=== PATIENT | male | born 1965 | race Caucasian/White ===

== ENCOUNTER 2018-11-24 13:39 | Emergency (ER) | payer BC ==
[2018-11-24 13:55] VITALS: BP 130/87
[2018-11-24] MEDS ORDERED: Sodium Chloride 0.9% 10 ML Syringe FLUSH PRN (14:15)
[2018-11-24] MEDS ORDERED: Albuterol/Ipratropium 3.0-0.5 MG/3 ML Neb Soln NEB ONE (14:18)
--- NOTE | 2018-11-24 15:56 | EDM.PDOC ---
ED HPI GENERAL MEDICAL PROBLEM - General Chief Complaint: Chest Pain Stated Complaint: CHEST PAIN Time Seen by Provider: 11/24/18 13:54 Source of Information: Reports: Patient History Limitations: Reports: No Limitations - History of Present Illness INITIAL COMMENTS - FREE TEXT/NARRATIVE: The patient presents with chest pain and shortness of breath. He says this will get worse when he lays flat. This has been going on for a few days. Before that he had post nasal drip, cough, congestion and runny nose. He has some allergies so he was trying his allergy meds but that is not helping. He has no history of heart problems. He has no history of DVT or PE and he has no pain in his legs or swelling. He did fly in from [place] recently. He does not smoke and he has no history of asthma or COPD. Onset: Gradual Duration: Day(s): Location: Reports: Chest Quality: Reports: Other (Tightness) Severity: Moderate Improves with: Reports: None Worsens with: Reports: None Associated Symptoms: Reports: Chest Pain, Cough, Shortness of Breath. Denies: Fever/Chills, Headaches, Nausea/Vomiting Chest Pain Score (Numeric/FACES): 2 - Related Data Allergies Allergy/AdvReac Type Severity Reaction Status Date / Time animal dander Allergy Airway Verified 11/24/18 13:55 Tightness wheat Allergy Airway Verified 11/24/18 13:55 Tightness hay Allergy Airway Uncoded 11/24/18 13:55 Tightness Home Meds: Home Meds Hydrocodone/Acetaminophen [Hydrocodon-Acetaminophen 5-325] 1 each PO Q6HR PRN # 15 tablet 08/27/16 [Rx] Albuterol [Proventil HFA] 2 puff INH Q4H PRN #1 inhaler 11/24/18 [Rx] Azithromycin [Zithromax] 250 mg PO DAILY #6 tab 11/24/18 [Rx] Past Medical History - Past Surgical History HEENT Surgical History: Reports: Naso-Sinus Surgery Musculoskeletal Surgical History: Reports: Shoulder Surgery Social & Family History - Tobacco Use Smoking Status *Q: Never Smoker - Caffeine Use Caffeine Use: Reports: Coffee - Recreational Drug Use Recreational Drug Use: No ED ROS GENERAL - Review of Systems Review Of Systems: See Below Constitutional: Reports: No Symptoms HEENT: Reports: Other (Congestion and runny nose) Respiratory: Reports: Shortness of Breath, Cough Cardiovascular: Reports: Chest Pain (tightness) Endocrine: Reports: No Symptoms GI/Abdominal: Reports: No Symptoms Musculoskeletal: Reports: No Symptoms ED EXAM, GENERAL - Physical Exam Exam: See Below Exam Limited By: No Limitations General Appearance: Alert, No Apparent Distress Ears: Normal External Exam Nose: Normal Inspection Head: Atraumatic, Normocephalic Neck: Normal Inspection, Supple, Non-Tender Respiratory/Chest: No Respiratory Distress, Decreased Breath Sounds, Wheezing ( very slight) Cardiovascular: Regular Rate, Rhythm, No Edema, No Murmur GI/Abdominal: Soft, Non-Tender, No Organomegaly, No Mass Back Exam: Normal Inspection Extremities: Normal Inspection Neurological: Alert, Oriented, No Motor/Sensory Deficits EKG INTERPRETATION EKG Date: 11/24/18 Time: 13:49 Rhythm: NSR Rate (Beats/Min): 89 [place]: Normal P-Wave: Present QRS: Normal ST-T: Normal QT: Normal Course - Vital Signs Last Recorded V/S: Last Vital Signs Temp 97.2 F 11/24/18 13:50 Pulse 90 11/24/18 13:50 Resp 18 11/24/18 13:50 BP 130/87 11/24/18 13:50 Pulse Ox 97 11/24/18 14:27 - Orders/Labs/Meds Orders: Active Orders 24 hr Category Date Time Status Cardiac Monitoring [RC] . DIRECTED Care 11/24/18 14:16 Active EKG Documentation Completion [RC] STAT Care 11/24/18 14:17 Active Peripheral IV Care [RC] . DIRECTED Care 11/24/18 14:17 Active RT Aerosol Therapy [RC] ASDIRECTED Care 11/24/18 14:18 Active Chest 2V [CR] Stat Exams 11/24/18 14:18 Taken Peripheral IV Insertion Adult [OM.PC] Stat Oth 11/24/18 14:15 Ordered Labs: Laboratory Tests 11/24/18 11/24/18 11/24/18 Range/Units 14:10 14:10 14:10 WBC 10.68 H (4.23-9.07) K/mm3 RBC 4.79 (4.63-6.08) M/mm3 Hgb 15.3 (13.7-17.5) gm/L Hct 44.9 (40.1-51.0) % MCV 93.7 H (79.0-92.2) fl MCH 31.9 (25.7-32.2) pg MCHC 34.1 (32.2-35.5) g/dl RDW Std Deviation 42.6 (35.1-43.9) fL Plt Count 175 (163-337) K/mm3 MPV 9.6 (9.4-12.3) fl Neut % (Auto) 80.2 H (34.0-67.9) % Lymph % (Auto) 12.2 L (21.8-53.1) % [place] % (Auto) 6.0 (5.3-12.2) % Eos % (Auto) 1.3 (0.8-7.0) Baso % (Auto) 0.2 (0.1-1.2) % Neut # (Auto) 8.57 H (1.78-5.38) K/mm3 Lymph # (Auto) 1.30 L (1.32-3.57) K/mm3 [place] # (Auto) 0.64 (0.30-0.82) K/mm3 Eos # (Auto) 0.14 (0.04-0.54) K/mm3 Baso # (Auto) 0.02 (0.01-0.08) K/mm3 D-Dimer, Quantitative 0.43 (0.19-0.50) mg/L Sodium 139 (136-145) mEq/L Potassium 3.8 (3.5-5.1) mEq/L Chloride 105 (98-107) mEq/L Carbon Dioxide 24 (21-32) mEq/L Anion Gap 13.8 (5-15) BUN 15 (7-18) mg/dL Creatinine 1.0 (0.7-1.3) mg/dL Est Cr Clr Drug Dosing 77.98 mL/min Estimated GFR (MDRD) > 60 (>60) mL/min BUN/Creatinine Ratio 15.0 (14-18) Glucose 107 H (74-106) mg/dL Calcium 9.4 (8.5-10.1) mg/dL Total Bilirubin 0.5 (0.2-1.0) mg/dL AST 30 (15-37) U/L ALT 64 H (16-63) U/L Alkaline Phosphatase 84 (46-116) U/L Troponin I < 0.017 (0.00-0.056) ng/mL Total Protein 7.8 (6.4-8.2) g/dl Albumin 3.9 (3.4-5.0) g/dl Globulin 3.9 gm/dL Albumin/Globulin Ratio 1.0 (1-2) Meds: Medications Discontinued Medications Generic Name Dose Route Start Last Admin Trade Name Freq PRN Reason Stop Dose Admin Albuterol/Ipratropium 3 ml 11/24/18 14:18 11/24/18 14:27 Duoneb 3.0-0.5 Mg/3 Ml NEB 11/24/18 14:19 3 ml ONETIME ONE Administration Sodium Chloride 10 ml 11/24/18 14:15 11/24/18 14:37 Saline Flush FLUSH 10 ml ASDIRECTED PRN Administration Keep Vein Open - Re-Assessments/Exams Free Text/Narrative Re-Assessment/Exam: 11/24/18 17:05 I ordered an IV saline lock, EKG, CXR, labs and duoneb. His EKG shows a NSR with no acute changes. His CXR shows no infiltrate. 11/24/18 17:06 His WBC is slightly elevated at 10.68. His CMP looks good. His troponin is negative. He feels better after the breathing treatment. I feel he has sinusitis and bronchitis. I will get him on some zithromax and albuterol. Departure - Departure Time of Disposition: 16:00 Disposition: Home, Self-Care 01 Condition: Good Clinical Impression: Atypical chest pain, Bronchitis Sinusitis Qualifiers: Sinusitis location: unspecified location Chronicity: acute Recurrence: non- recurrent Qualified Code(s): J01.90 - Acute sinusitis, unspecified Prescriptions: Albuterol [Proventil HFA] 2 puff INH Q4H PRN #1 inhaler PRN Reason: Shortness Of Breath Azithromycin [Zithromax] 250 mg PO DAILY #6 tab Instructions: Sinusitis, Adult, [id number], Acute Bronchitis, Adult, Easy-to- Read Referrals: Kalyan Prabhakar MD [Primary Care Provider] - 1 Week Forms: ED Department Discharge Additional Instructions: Take the zithromax 2 pills on day 1 and 1 pill on day 2 through 5. Use the inhaler 2 puffs every 6 hours as needed for shortness of breath or tightness in your chest. Drink plenty of fluids. Please return if you are worse. - My Orders Last 24 Hours: My Active Orders 11/24/18 14:15 Peripheral IV Insertion Adult [OM.PC] Stat 11/24/18 14:16 Cardiac Monitoring [RC] . DIRECTED 11/24/18 14:17 EKG Documentation Completion [RC] STAT Peripheral IV Care [RC] . DIRECTED 11/24/18 14:18 RT Aerosol Therapy [RC] ASDIRECTED Chest 2V [CR] Stat - Assessment/Plan Last 24 Hours: My Active Orders 11/24/18 14:15 Peripheral IV Insertion Adult [OM.PC] Stat 11/24/18 14:16 Cardiac Monitoring [RC] . DIRECTED 11/24/18 14:17 EKG Documentation Completion [RC] STAT Peripheral IV Care [RC] . DIRECTED 11/24/18 14:18 RT Aerosol Therapy [RC] ASDIRECTED Chest 2V [CR] Stat
--- NOTE | 2018-11-24 20:17 | CR ---
Chest: Two views of the chest were obtained. Comparison: No prior chest x-ray. Heart size and mediastinum are normal. Lungs are clear. Bony structures are unremarkable. Impression: 1. Nothing acute is seen on two-view chest x-ray. Diagnostic code #1
== END 2018-11-24 16:08 | disposition home or self-care (01) ==
LOC: JD.ED 13:39
DX: R07.89 Other chest pain (principal); J40 Bronchitis, not specified as acute or chronic; J01.90 Acute sinusitis, unspecified; Z91.018 Allergy to other foods
CPT/HCPCS: 36415; 71046; 71046-26; 80053; 84484; 85025; 85379; 93005; 93010; 94640; 99284; 99285-25; J7620-GY

== ENCOUNTER 2021-02-07 19:11 | Emergency (ER) | payer BC ==
[2021-02-07 19:28] VITALS: BP 146/84; PULSE 109
[2021-02-07] MEDS ORDERED: Acetaminophen 325 MG Tab PO STA (20:01)
[2021-02-07] MEDS ORDERED: Sodium Chloride 0.9% 1,000 ML IV ONE (20:01)
[2021-02-07] MEDS ORDERED: Ketorolac 30 MG/ML SDV IVPUSH ONE (20:01)
[2021-02-07] MEDS ORDERED: Sodium Chloride 0.9% 10 ML Syringe FLUSH PRN (20:01)
--- NOTE | 2021-02-07 23:58 | EDM.PDOC ---
ED HPI GENERAL MEDICAL PROBLEM - General Chief Complaint: Fever Stated Complaint: FEVER,FEET PAIN Time Seen by Provider: 02/07/21 19:24 Source of Information: Reports: Patient, Family History Limitations: Reports: No Limitations - History of Present Illness INITIAL COMMENTS - FREE TEXT/NARRATIVE: Patient is a 55-year-old male who comes in after having fever and shaking chills which started last night but are worse today. Patient had similar symptoms approximately 1 week ago at which time he was having some dysuria which resolved by the next day and is also complaining of some dysuria tonight. He is not complaining any cough or shortness of breath. He is complaining that he feels achy all over. He denies any vomiting or diarrhea. He denies any chest pain or abdominal pain. He has not had any bloody or tarry stools. He denies any swelling to his ankles or trouble breathing when he lays flat. Duration: Day(s): (2 days), Getting Worse Location: Reports: Abdomen Quality: Reports: Burning Severity: Mild Improves with: Reports: None Worsens with: Reports: Other (Urination) Associated Symptoms: Reports: Fever/Chills. Denies: Chest Pain, Cough, Diaphoresis, Malaise, Nausea/Vomiting, Rash, Shortness of Breath Treatments [employer]: Reports: Acetaminophen Generalized Pain Score (Numeric/FACES): 10 - Related Data Allergies Allergy/AdvReac Type Severity Reaction Status Date / Time animal dander Allergy Airway Verified 02/07/21 19:28 Tightness wheat Allergy Airway Verified 02/07/21 19:28 Tightness hay Allergy Airway Uncoded 02/07/21 19:28 Tightness Home Meds: Home Meds Hydrocodone/Acetaminophen [Hydrocodon-Acetaminophen 5-325] 1 each PO Q6HR PRN #15 tablet 08/27/16 [Rx] Albuterol [Proventil HFA] 2 puff INH Q4H PRN #1 inhaler 11/24/18 [Rx] Azithromycin [Zithromax] 250 mg PO DAILY #6 tab 11/24/18 [Rx] levoFLOXacin [Levaquin] 500 mg PO DAILY #5 tab 02/08/21 [Rx] Past Medical History Gastrointestinal History: Reports: Irritable Bowel Syndrome - Past Surgical History HEENT Surgical History: Reports: Naso-Sinus Surgery Musculoskeletal Surgical History: Reports: Shoulder Surgery Social & Family History - Tobacco Use Tobacco Use Status *Q: Never Tobacco User Second Hand Smoke Exposure: No - Caffeine Use Caffeine Use: Reports: Coffee - Recreational Drug Use Recreational Drug Use: No ED ROS GENERAL - Review of Systems Review Of Systems: Comprehensive ROS is negative, except as noted in HPI. ED EXAM, SEPSIS - Physical Exam Exam: See Below Exam Limited By: No Limitations General Appearance: Alert, No Apparent Distress Throat/Mouth: Normal Oropharynx Head: Normocephalic Neck: Supple, Non-Tender Respiratory/Chest: No Respiratory Distress, Lungs Clear, Normal Breath Sounds Cardiovascular: Regular Rate, Rhythm, No Edema, No JVD GI/Abdominal Exam: Normal Bowel Sounds, Soft, Non-Tender, No Organomegaly, No Distention Back: Normal Inspection. No: CVA Tenderness (L), CVA Tenderness (R) Extremities: Normal Inspection, No Pedal Edema Neurological: Alert, Oriented Psychiatric: Normal Affect, Normal Mood Skin: Warm, Dry, Normal Color, No Rash Course - Vital Signs Text/Narrative:: Patient's blood work is unremarkable with a white blood cell count of 11.1 except he does have 79 neutrophils and 6 bands. His urine is negative for leukocytes but is positive for type +2 blood and white blood cell count between 5 and 10 with rare bacteria. Is lactate was negative blood cultures are pending patient is feeling much better with Toradol and IV fluids. I am giving him a dose of Levaquin and will give him a prescription to do his clinical UTI/dysuria. Patient will be given the diagnosis of viral syndrome. He is instructed to return to emergency department feeling worse and follow-up with his PCP this week for recheck. Patient is currently asking for dinner and states he is hungry. Last Recorded V/S: Last Vital Signs Temp 102 F H 02/07/21 19:25 Pulse 109 H 02/07/21 19:25 Resp 16 02/07/21 19:25 BP 146/84 H 02/07/21 19:25 Pulse Ox 98 02/07/21 19:25 - Orders/Labs/Meds Orders: Active Orders 24 hr Category Date Time Status Peripheral IV Care [RC] . DIRECTED Care 02/07/21 20:02 Active CULTURE BLOOD [BC] Stat Lab 02/07/21 20:25 Received CULTURE BLOOD [BC] Stat Lab 02/07/21 20:35 Received Sodium Chloride 0.9% [Saline Flush] Med 02/07/21 20:01 Active 10 ml FLUSH ASDIRECTED PRN Blood Culture x2 Reflex Set [OM.PC] Stat Oth 02/07/21 20:01 Ordered Peripheral IV Insertion Adult [OM.PC] Routine Oth 02/07/21 20:01 Ordered Medication Orders Sodium Chloride (Sodium Chloride 0.9% 10 Ml Syringe) 10 ml FLUSH ASDIRECTED PRN PRN Reason: Keep Vein Open Last Admin: 02/07/21 20:32 Dose: 10 ml Documented by: JENNIFER Labs: Laboratory Tests 02/07/21 02/07/21 02/07/21 Range/Units 19:37 20:25 20:25 WBC 11.17 H (4.23-9.07) K/mm3 RBC 4.20 L (4.63-6.08) M/mm3 Hgb 13.6 L D (13.7-17.5) gm/dl Hct 40.5 (40.1-51.0) % MCV 96.4 H (79.0-92.2) fl MCH 32.4 H (25.7-32.2) pg MCHC 33.6 (32.2-35.5) g/dl RDW Std Deviation 44.0 H (35.1-43.9) fL Plt Count 179 D (163-337) K/mm3 MPV 9.5 (9.4-12.3) fl Neutrophils % (Manual) 79 H (40-60) % Band Neutrophils % 6 (0-10) % Lymphocytes % (Manual) 8 L (20-40) % Atypical Lymphs % 0 % Monocytes % (Manual) 7 (2-10) % Eosinophils % (Manual) 0 L (0.8-7.0) % Basophils % (Manual) 0 L (0.2-1.2) Platelet Estimate Adequate RBC Morph Comment Normal Sodium 139 (136-145) mEq/L Potassium 3.4 L (3.5-5.1) mEq/L Chloride 105 (98-107) mEq/L Carbon Dioxide 20 L (21-32) mEq/L Anion Gap 17.4 H (5-15) BUN 19 H (7-18) mg/dL Creatinine 1.1 (0.7-1.3) mg/dL Est Cr Clr Drug Dosing 71.78 mL/min Estimated GFR (MDRD) > 60 (>60) mL/min BUN/Creatinine Ratio 17.3 (14-18) Glucose 130 H (70-99) mg/dL Lactic Acid (0.4-2.0) mmol/L Calcium 8.6 (8.5-10.1) mg/dL Total Bilirubin 0.7 (0.2-1.0) mg/dL AST 19 (15-37) U/L ALT 39 (16-63) U/L Alkaline Phosphatase 91 (46-116) U/L Total Protein 7.4 (6.4-8.2) g/dl Albumin 3.6 (3.4-5.0) g/dl Globulin 3.8 gm/dL Albumin/Globulin Ratio 1.0 (1-2) Urine Color Yellow (Yellow) Urine Appearance Clear (Clear) Urine pH 7.5 (5.0-8.0) Ur Specific [place] 1.020 (1.005-1.030) Urine Protein 1+ H (Negative) Urine Glucose (UA) Negative (Negative) Urine Ketones 1+ H (Negative) Urine Occult Blood 2+ H (Negative) Urine Nitrite Negative (Negative) Urine Bilirubin Negative (Negative) Urine Urobilinogen 0.2 (0.2-1.0) Ur Leukocyte Esterase Negative (Negative) Urine RBC 0-5 (0-5) /hpf Urine WBC 5-10 H (0-5) /hpf Urine WBC Clumps Few (NOT SEEN) /hpf Ur Squamous Epith Cells 0-5 (0-5) /hpf Urine Bacteria Rare (FEW) /hpf Urine Mucus Rare (FEW) /hpf 02/07/21 Range/Units 20:25 WBC (4.23-9.07) K/mm3 RBC (4.63-6.08) M/mm3 Hgb (13.7-17.5) gm/dl Hct (40.1-51.0) % MCV (79.0-92.2) fl MCH (25.7-32.2) pg MCHC (32.2-35.5) g/dl RDW Std Deviation (35.1-43.9) fL Plt Count (163-337) K/mm3 MPV (9.4-12.3) fl Neutrophils % (Manual) (40-60) % Band Neutrophils % (0-10) % Lymphocytes % (Manual) (20-40) % Atypical Lymphs % % Monocytes % (Manual) (2-10) % Eosinophils % (Manual) (0.8-7.0) % Basophils % (Manual) (0.2-1.2) Platelet Estimate RBC Morph Comment Sodium (136-145) mEq/L Potassium (3.5-5.1) mEq/L Chloride (98-107) mEq/L Carbon Dioxide (21-32) mEq/L Anion Gap (5-15) BUN (7-18) mg/dL Creatinine (0.7-1.3) mg/dL Est Cr Clr Drug Dosing mL/min Estimated GFR (MDRD) (>60) mL/min BUN/Creatinine Ratio (14-18) Glucose (70-99) mg/dL Lactic Acid 1.4 (0.4-2.0) mmol/L Calcium (8.5-10.1) mg/dL Total Bilirubin (0.2-1.0) mg/dL AST (15-37) U/L ALT (16-63) U/L Alkaline Phosphatase (46-116) U/L Total Protein (6.4-8.2) g/dl Albumin (3.4-5.0) g/dl Globulin gm/dL Albumin/Globulin Ratio (1-2) Urine Color (Yellow) Urine Appearance (Clear) Urine pH (5.0-8.0) Ur Specific [place] (1.005-1.030) Urine Protein (Negative) Urine Glucose (UA) (Negative) Urine Ketones (Negative) Urine Occult Blood (Negative) Urine Nitrite (Negative) Urine Bilirubin (Negative) Urine Urobilinogen (0.2-1.0) Ur Leukocyte Esterase (Negative) Urine RBC (0-5) /hpf Urine WBC (0-5) /hpf Urine WBC Clumps (NOT SEEN) /hpf Ur Squamous Epith Cells (0-5) /hpf Urine Bacteria (FEW) /hpf Urine Mucus (FEW) /hpf Meds: Medications Generic Name Dose Route Start Last Admin Trade Name Freq PRN Reason Stop Dose Admin Sodium Chloride 10 ml 02/07/21 20:01 02/07/21 20:32 Sodium Chloride 0.9% 10 Ml Syringe FLUSH 10 ml ASDIRECTED PRN Administration Keep Vein Open Discontinued Medications Generic Name Dose Route Start Last Admin Trade Name Imtiaz PRN Reason Stop Dose Admin Acetaminophen 975 mg 02/07/21 20:01 02/07/21 20:31 Acetaminophen 325 Mg Tab PO 02/07/21 20:02 975 mg NOW STA Administration Sodium Chloride 1,000 mls @ 1,000 mls/hr 02/07/21 20:01 02/07/21 20:31 Normal Saline IV 02/07/21 21:00 1,000 mls/hr ONETIME ONE Administration Ketorolac Tromethamine 30 mg 02/07/21 20:01 02/07/21 20:31 Ketorolac 30 Mg/Ml Sdv IVPUSH 02/07/21 20:02 30 mg ONETIME ONE Administration Departure - Departure Time of Disposition: 23:58 Disposition: Home, Self-Care 01 Condition: Good Clinical Impression: Acute viral syndrome, Dysuria, Fever, Flu-like symptoms - Discharge Information Instructions: Viral Illness, Adult, Fever, Adult, [id number] Referrals: Kalyan Prabhakar MD [Primary Care Provider] - Sepsis Event Note (ED) - Evaluation Sepsis Screening Result: Possible Sepsis Risk - Focused Exam Vital Signs: Vital Signs Temp Pulse Resp BP Pulse Ox 02/07/21 19:25 102 F H 109 H 16 146/84 H 98 - My Orders Last 24 Hours: My Active Orders 02/07/21 20:01 Sodium Chloride 0.9% [Saline Flush] 10 ml FLUSH ASDIRECTED PRN Blood Culture x2 Reflex Set [OM.PC] Stat Peripheral IV Insertion Adult [OM.PC] Routine 02/07/21 20:02 Peripheral IV Care [RC] . DIRECTED 02/07/21 20:25 CULTURE BLOOD [BC] Stat 02/07/21 20:35 CULTURE BLOOD [BC] Stat - Assessment/Plan Last 24 Hours: My Active Orders 02/07/21 20:01 Sodium Chloride 0.9% [Saline Flush] 10 ml FLUSH ASDIRECTED PRN Blood Culture x2 Reflex Set [OM.PC] Stat Peripheral IV Insertion Adult [OM.PC] Routine 02/07/21 20:02 Peripheral IV Care [RC] . DIRECTED 02/07/21 20:25 CULTURE BLOOD [BC] Stat 02/07/21 20:35 CULTURE BLOOD [BC] Stat
[2021-02-08] MEDS ORDERED: Levofloxacin 500 MG Tab PO ONE (00:01)
== END 2021-02-08 00:15 | disposition home or self-care (01) ==
LOC: JD.ED 19:11
DX: B34.9 Viral infection, unspecified (principal); R30.0 Dysuria; Z91.048 Other nonmedicinal substance allergy status; Z91.018 Allergy to other foods
CPT/HCPCS: 36415; 80053; 81001; 83605; 85007; 85027; 87040; 96374; 99283; A9270; J1885; J7030